=== PATIENT | female | born 1990 ===

== ENCOUNTER 2021-05-30 01:12 | Inpatient (IN) | payer SELFPAY ==
[2021-05-30] MEDS ORDERED: LACTATED RINGERS 1,000 ML IV ONE (02:04)
[2021-05-30 02:21] LABS: Bacteria,Urine 1+ /HPF (Negative); Bilirubin,Urine NEG (Negative); Blood,Urine LG (Negative); Color,Urine Yellow (Yellow); Mucus,Urine FEW /HPF; Protein,Urine <15 mg/dL mg/dL (Negative); Urobilinogen,Urine < 2.0 mg/dL (<2.0)
--- NOTE | 2021-05-30 03:56 | Ultrasound Report ---
ULTRASOUND BIOPHYSICAL PROFILE INDICATION: wellbeing. COMPARISON: None available. FINDINGS: breathing movement = 2 Gross body movement = 2 tone = 2 Qualitative amniotic fluid volume = 2 Total biophysical score = 8/8 Amniotic fluid index is 10.2 cm. Presentation is Cephalic. heart rate is 149 beats per minute. There is no sonographic evidence of placental abruption. The placenta is low lying and appears to cov er the cervical os. IMPRESSION: 1. biophysical profile = 8/8 2. ANNA is within normal limits. 3. Low lying placenta appears to cover the os, this is concerning for placenta previa. Signer Name: Landon Tamez MD Signed: 05/30/2021 3:51 AM Workstation Name: [id number]
[2021-05-30] MEDS ORDERED: ACETAMINOPHEN 325 MG TAB PO PRN (05:05)
[2021-05-30 05:09] LABS: Basophils % (Auto) 0.4 % (0.0-1.8); Eosinophils # (Auto) 0.1 K/mm3 (0.0-0.4); Eosinophils % (Auto) 0.7 % (0.0-4.3); Hematocrit 32.1 % (30.3-42.9); Hemoglobin 10.8 gm/dl (10.1-14.3); Lymphocytes # (Auto) 1.9 K/mm3 (1.2-5.4); Lymphocytes % (Auto) 20.3 % (13.4-35.0); Mean Corpuscular HGB Conc 34 % (30-34); Mean Corpuscular Volume 84 fl (79-97); Monocytes # (Auto) 0.5 K/mm3 (0.0-0.8); Monocytes % (Auto) 5.2 % (0.0-7.3); Platelet Count 280 K/mm3 (140-440); Red Blood Count 3.85 M/mm3 (3.65-5.03); Red Cell Distribution Width 12.5 % (13.2-15.2)
--- NOTE | 2021-05-30 05:28 | Ultrasound Report ---
OBSTETRIC ULTRASOUND INDICATION: EFW COMPARISON: Ultrasound earlier today. TECHNIQUE: Transabdominal imaging was performed. FINDINGS: Single viable intrauterine is identified. lie: Cephalic. Heart rate: 138 bpm. measurements are as follows: Biparietal diameter 7.2 cm, 28 weeks 5 days Head circumference 27.1 cm, 29 weeks 4 days Abdominal circumference 25.9 cm, 30 weeks 0 days Femur length 5.5 cm, 29 weeks 1 day CONCLUSION: Estimated weight at this time is 3 pounds, 2 ounces Signer Name: Landon Tamez MD Signed: 05/30/2021 5:23 AM Workstation Name: [id number]
[2021-05-30] MEDS: AMPICILLIN/NS 2 GM/100 ML 2 GM/100 ML BAG IV SCH ×3 (05:51→18:20)
[2021-05-30] MEDS: BETAMET ACET/BETAMET NA PH 6 MG/ML INJ 5 ML MDV IM SCH (05:55)
[2021-05-30] MEDS: LACTATED RINGERS 1,000 ML IV SCH ×2 (06:00→18:22)
[2021-05-30] MEDS: AZITHROMYCIN/NS 500 MG/250 ML 500 MG/250 ML BAG IV SCH (07:22)
--- NOTE | 2021-05-30 10:21 | History and Physical Report ---
History of Present Illness Date of examination: 05/30/21 Date of admission: 05/30/21 05:05 Chief complaint: vaginal bleeding History of present illness: 31 yo G1 at 32 weeks 4 days (SANTHOSH 07/21/2021) complicated by history of placenta previa presenting with second bleed during soaking patient's clothes and bedsheets that has since resolved. chart at 22 weeks on 03/13/2021 discussing with patient to not have intercourse or do heavy lifting however patient reports that she was not told this information. Reports active fetus. Reports having intercourse last 2 days ago. PNC O+ antibody negative Hemoglobin hematocrit 12.1 and 38.2 Plt 348 RPR NR 1hr GTT 127 Rubella immune Urine culture negative Pap ASCUS, HPV neg HIV negative VDRL nonreactive Chlamydia and gonorrhea negative AFP negative Past History Past Medical History: no pertinent history Past Surgical History: no surgical history Family/Genetic History: none Social history: no significant social history - Obstetrical History Expected Date of Delivery: 07/22/21 Actual Gestation: 32 Week(s) 3 Day(s) : 1 Medications and Allergies Allergies Allergy/AdvReac Type Severity Reaction Status Date / Time No Known Allergies Allergy Verified 05/30/21 02:08 Home Medications Medication Instructions Recorded Confirmed Last Taken Type Plus Iron Tablet PO DAILY 05/30/21 05/29/21 History Active Meds: Active Medications Acetaminophen (Acetaminophen 325 Mg Tab) 650 mg PO Q4H PRN PRN Reason: Pain MILD(1-3)/Fever >100.5/RIOJAS Betamethasone Acet/Betameth SodPhos (Betamet Acet/Betamet Na Ph 6 Mg/Ml Inj 5 Ml Mdv) 12 mg IM Q24H TILA Stop: 05/31/21 05:01 Last Admin: 05/30/21 05:55 Dose: 12 mg Documented by: Docusate Sodium (Docusate Sodium 100 Mg Cap) 100 mg PO Q12H PRN PRN Reason: Constipation Lactated Ringer's (Lactated Ringers) 1,000 mls @ 125 mls/hr IV DIRECT TILA Last Admin: 05/30/21 06:00 Dose: 125 mls/hr Documented by: Ampicillin Sodium (Ampicillin/Ns 2 Gm/100 Ml) 2 gm in 100 mls @ 100 mls/hr IV Q6H TILA; Protocol Stop: 06/01/21 00:59 Last Admin: 05/30/21 05:51 Dose: 100 mls/hr Documented by: Azithromycin (Zithromax/Ns) 500 mg in 250 mls @ 250 mls/hr IV Q24H [facility] Stop: 06/01/21 05:59 Last Admin: 05/30/21 07:22 Dose: 250 mls/hr Documented by: Multivitamins/Iron/Calcium ( Uit18-Hd Fumarate-Folic Acid Vit Tab) 1 each PO QDAY [facility] Review of Systems All systems: negative (expect HPI) - Vital Signs Vital signs: Vital Signs Pulse Pulse Ox 86 99 05/30/21 01:33 05/30/21 01:33 Temp Pulse Resp BP Pulse Ox 99.2 F 111 H 12 113/61 98 05/30/21 05:55 05/30/21 07:20 05/30/21 05:55 05/30/21 05:56 05/30/21 07:20 - Physical Exam Abdomen: Positive: normal appearance, soft Vagina: Positive: other (no further blood) Uterus: Positive: enlarged Extremities: Positive: normal - Obstetrical FHR: category 1 Uterine Contraction Monitor Mode: External Results Result Diagrams: 05/30/21 04:40 Abnormal lab results 05/30/21 05/30/21 Range/Units 04:20 04:40 RDW 12.5 L (13.2-15.2) % Seg Neutrophils % 73.4 H (40.0-70.0) % Membranes Rupture Positive A (Negative) All other labs normal. Assessment and Plan - Patient Problems (1) Vaginal bleeding during Current Visit: Yes Status: Acute Plan to address problem: Patient with no placenta previa presenting with vaginal bleeding in . Patient admits to intercourse last 2 days ago, non-compliant with recommendation to avoid intercourse. Vaginal bleeding since stopped. No evidence of abruption on the ultrasound completed today. ROM plus testing was completed today with a positive result however given known vaginal bleeding is possibly a contaminant leading to a false positive result. ANNA is normal. --Steroids for lung maturity --Amp/Azithro until rupture status determined --Consult [facility] for assistance --For primary c/s if labors --Counselled patient at length against intercourse with known placenta previa
[2021-05-30] MEDS: PRENATAL VIT27-FE FUMARATE-FOLIC ACID VIT TAB PO SCH (10:49)
--- NOTE | 2021-05-30 13:46 | Consultation ---
History of Present Illness Consult date: 05/30/21 Requesting physician: VIJAY WU JR History of present illness: 31 y/o G1P) SANTHOSH 07/21/21 OB reports known h/o placenta previa noted on prenatals on 20 week US ( Advised No Intercousre ) - now presenting with second episode of vaginal bleeding FOC in room reports having intercourse couple days ago Heavy Bleeding last pm around [place] No active bleeding during my exam and pad dry on inspection Denies Vag bleeding ctx fevers pain at this time OF NOTE [facility] US - 05/30/21 EFW at 1422 grams - 1% BPP / ANNA 10.2 VTX ( early US done at 11 weeks confirmed SANTHOSH of 07/21/21 ) Denies Surg Med ds, NKA, no C/D/D 05/30/21 H/H at 10.8/32.1 EFM occ ctx , Categ I ,120-130's Afeb VSS Abd NT gravid Ext NT Vag no active bleeding Pad dry PNC O+ antibody negative Hemoglobin hematocrit 12.1 and 38.2 Plt 348 RPR NR 1hr GTT 127 Rubella immune Urine culture negative Pap ASCUS, HPV neg HIV negative VDRL nonreactive Chlamydia and gonorrhea negative AFP negative Past History Past Medical History: no pertinent history Past Surgical History: no surgical history Family/Genetic History: none - Obstetrical History : 1 Medications and Allergies Allergies Allergy/AdvReac Type Severity Reaction Status Date / Time No Known Allergies Allergy Verified 05/30/21 02:08 Home Medications Medication Instructions Recorded Confirmed Last Taken Type Plus Iron Tablet PO DAILY 05/30/21 05/29/21 History Active Meds: Active Medications Acetaminophen (Acetaminophen 325 Mg Tab) 650 mg PO Q4H PRN PRN Reason: Pain MILD(1-3)/Fever >100.5/RIOJAS Betamethasone Acet/Betameth SodPhos (Betamet Acet/Betamet Na Ph 6 Mg/Ml Inj 5 Ml Mdv) 12 mg IM Q24H [facility] Stop: 05/31/21 05:01 Last Admin: 05/30/21 05:55 Dose: 12 mg Documented by: Docusate Sodium (Docusate Sodium 100 Mg Cap) 100 mg PO Q12H PRN PRN Reason: Constipation Lactated Ringer's (Lactated Ringers) 1,000 mls @ 125 mls/hr IV DIRECT TILA Last Admin: 05/30/21 06:00 Dose: 125 mls/hr Documented by: Ampicillin Sodium (Ampicillin/Ns 2 Gm/100 Ml) 2 gm in 100 mls @ 100 mls/hr IV Q6H [facility]; Protocol Stop: 06/01/21 00:59 Last Admin: 05/30/21 05:51 Dose: 100 mls/hr Documented by: Azithromycin (Zithromax/Ns) 500 mg in 250 mls @ 250 mls/hr IV Q24H [facility] Stop: 06/01/21 05:59 Last Admin: 05/30/21 07:22 Dose: 250 mls/hr Documented by: Multivitamins/Iron/Calcium ( Iku20-Ne Fumarate-Folic Acid Vit Tab) 1 each PO QDAY [facility] Last Admin: 05/30/21 10:49 Dose: 1 each Documented by: - Vital Signs Vital signs: Vital Signs Pulse Pulse Ox 86 99 05/30/21 01:33 05/30/21 01:33 Temp Pulse Resp BP Pulse Ox 99.2 F 111 H 12 113/61 100 05/30/21 05:55 05/30/21 07:20 05/30/21 05:55 05/30/21 05:56 05/30/21 11:03 Results Result Diagrams: 05/30/21 04:40 Abnormal lab results 05/30/21 05/30/21 Range/Units 04:20 04:40 RDW 12.5 L (13.2-15.2) % Seg Neutrophils % 73.4 H (40.0-70.0) % Membranes Rupture Positive A (Negative) All other labs normal. Assessment and Plan Impression 1. Kay IUP at 32 4/7 weeks 2. Severer FGR - EFW at 1% ( US done 05/30/21 ) 3. Placenta Previa Complete - Vag Bleeding 4. Anemia Recommendations: 1. Steroids for FLM if not given 2. Restrict activity and Pelvic Rest 3. Please Obtain Cord Arterial Dopplers with BPP ( Twice per week while in house - Tuesdays and Fridays ) 4. Iron BID 5. Declince Amnio at this time 6. Obtain NIPT if can be done in house 7. CMV IgG and IgM 8. C/S explained in the event delivery indicated due to previa 9. NICU consult if not done 10. speaks Angolan and explained management with him. 11. EFW US q 2 to 3 weeks
--- NOTE | 2021-05-30 16:15 | Ultrasound Report ---
ULTRASOUND OBSTETRIC LIMITED INDICATION / CLINICAL INFORMATION: severe iugr. Clinical Gestational Age (GA) in weeks, days: 32, 4 TECHNIQUE: Transabdominal. COMPARISON: None available. FINDINGS: HEART RATE (beats per minute): 116 UMBILICAL CORD DOPPLER: - S/D Ratio Average: 2.5 - Waveform: Normal. Persistent. - Resistive Index (RI) Average: 0.6 - Waveform: Normal. Persists - Pulsitivity Index (PI) Average: None measure ADDITIONAL FINDINGS: None. IMPRESSION: 1. No significant abnormality. Signer Name: Lloyd Hu DO Signed: 05/30/2021 4:11 PM Workstation Name: [id number]
--- NOTE | 2021-05-30 19:28 | Consultation ---
Consult Note - Parent Education I met with parent(s) and discussed the following:: Need for NICU admission, Poss ible need for intubation and surfactant or other resp support, Temperature regulation, Head ultrasounds to evaluate IVH, Eye exams for ROP screening, Possible need for IV fluids/TPN and IV antibiotics, Possible need for umbilical lines, Importance of providing breast milk & encouraged pumping aft delivery, Donor breast milk if baby meets criteria after , Slow feeding advancement and monitoring of tolerance. NG/OG feeds, Need to monitor for jaundice, Data for survival & survival without significant co-morbidities Parent(s) demonstrated understanding of all the information:: Yes Additional Comment: Consult done with assistance from Language line as mother is Fijian speaking only; FOB at bedside and speaks both Hong Konger and Fijian. Mothe r and Father verbalized understanding of information given and all questions answered. Assessment and Plan - Assessment Gestation:: 32.4 (IUGR with EFW at 1422g) Estimated Weight: 3lb 2oz ~ 1422g Baby's gender: Male (Sex of not listed in prenatals nor via US; comment on PNR on "circ undecided") - Plan Plan: Agree with Mag & steroids Will attend delivery Please call NICU with questions
[2021-05-31] MEDS: LACTATED RINGERS 1,000 ML IV SCH ×2 (01:27→12:11)
[2021-05-31] MEDS: AMPICILLIN/NS 2 GM/100 ML 2 GM/100 ML BAG IV SCH ×2 (01:27→07:14)
[2021-05-31] MEDS: BETAMET ACET/BETAMET NA PH 6 MG/ML INJ 5 ML MDV IM SCH (06:24)
[2021-05-31] MEDS: AZITHROMYCIN/NS 500 MG/250 ML 500 MG/250 ML BAG IV SCH (07:46)
--- NOTE | 2021-05-31 09:44 | Progress Note ---
Subjective - Subjective Date of service: 05/31/21 Principal diagnosis: Placenta Previa SANTHOSH 07/21/21 Interval history: 32.5 weeks today HD #2 Placenta Previa: no VB today Steroids completed 05/31/21 @ 06:24 no evidence of PPROM: d/c antibiotics(suspect ROM plus false pos because of bleeding) CFM FHT 120 baseline, Category 1: appropriate for gestational age [place]: not kristy Labs stable9 Hb 10.8) Plan for expectant management Deliver for any maternal or indication Pelvic rest Up to shower and chair today Dereck Zuniga MD Patient reports: movement normal Objective - Vital Signs Vital Signs: Vital Signs - 12hr 05/31/21 05/31/21 05/31/21 07:12 07:20 07:30 Temperature 98.0 F Pulse Rate 68 Respiratory 17 Rate Blood Pressure 103/58 O2 Sat by Pulse 97 Oximetry [ Bilateral Throughout] - Labs Labs: Abnormal Labs 05/30/21 05/30/21 04:20 04:40 RDW 12.5 L Seg Neutrophils % 73.4 H Membranes Rupture Positive A Laboratory Results - last 24 hr 05/30/21 Unknown Coronavirus (PCR) Negative
[2021-05-31] MEDS: DOCUSATE SODIUM 100 MG CAP PO PRN (10:23)
[2021-05-31] MEDS: PRENATAL VIT27-FE FUMARATE-FOLIC ACID VIT TAB PO SCH (10:23)
[2021-06-01] MEDS ORDERED: TERBUTALINE 1 MG/1 ML INJ SUB-Q ONE (02:29)
[2021-06-01] MEDS ORDERED: FAMOTIDINE 20 MG/2 ML INJ IV ONE (05:29)
[2021-06-01] MEDS ORDERED: BICITRA ORAL LIQD 30ML ONE (05:29)
[2021-06-01] MEDS ORDERED: OXYTOCIN DRIP 30,000 MILLIUNITS/500 ML BAG IV ONE (05:29)
[2021-06-01] MEDS ORDERED: METOCLOPRAMIDE 10 MG/2 ML INJ ONE (05:29)
[2021-06-01] MEDS ORDERED: SODIUM CHLORIDE 0.9% 500 ML 500 ML IV ONE (05:35)
--- NOTE | 2021-06-01 05:38 | Progress Note ---
Subjective - Subjective Date of service: 06/01/21 Principal diagnosis: Placenta Previa SANTHOSH 07/21/21 Interval history: 32.6 weeks NRFHT, placenta previa with bleeding(new onset this AM) and severe IUGR to OR for delivery Infromed consent Dereck Clark MD Patient reports: movement normal Objective - Vital Signs Vital Signs: Vital Signs - 12hr 05/31/21 05/31/21 05/31/21 18:45 18:49 18:51 Pulse Rate 63 62 O2 Sat by Pulse 77 L 76 L 80 L Oximetry 05/31/21 05/31/21 05/31/21 19:07 19:13 19:17 Pulse Rate 64 68 O2 Sat by Pulse 75 L 76 L 75 L Oximetry 05/31/21 05/31/21 05/31/21 19:18 19:29 19:34 Pulse Rate O2 Sat by Pulse 73 L 76 L 75 L Oximetry 05/31/21 05/31/21 05/31/21 19:37 19:50 19:55 Pulse Rate 62 66 O2 Sat by Pulse 75 L 75 L 75 L Oximetry 05/31/21 05/31/21 05/31/21 19:58 20:00 20:05 Pulse Rate 66 61 O2 Sat by Pulse 75 L 75 L 75 L Oximetry 05/31/21 05/31/21 05/31/21 20:12 20:17 20:31 Pulse Rate 60 81 65 O2 Sat by Pulse 76 L 75 L 77 L Oximetry 05/31/21 05/31/21 05/31/21 20:37 20:51 20:53 Pulse Rate 69 85 O2 Sat by Pulse 76 L 52 L 84 Oximetry 05/31/21 05/31/21 05/31/21 20:56 21:01 21:02 Pulse Rate 68 O2 Sat by Pulse 74 L 74 L 74 L Oximetry 05/31/21 05/31/21 05/31/21 21:12 21:18 21:23 Pulse Rate 81 61 O2 Sat by Pulse 77 L 75 L 71 L Oximetry 05/31/21 05/31/21 05/31/21 21:39 21:42 21:44 Pulse Rate 129 H 66 O2 Sat by Pulse 72 L 78 L 76 L Oximetry 05/31/21 05/31/21 05/31/21 22:01 22:03 22:06 Pulse Rate O2 Sat by Pulse 72 L 87 82 L Oximetry 05/31/21 05/31/21 05/31/21 22:08 22:23 22:28 Pulse Rate 57 L O2 Sat by Pulse 75 L 76 L 83 L Oximetry 05/31/21 05/31/21 05/31/21 22:29 22:33 22:42 Pulse Rate 104 H 102 H O2 Sat by Pulse 75 L 69 L 78 L Oximetry 05/31/21 05/31/21 05/31/21 22:47 22:52 22:53 Pulse Rate 64 64 O2 Sat by Pulse 79 L 75 L 73 L Oximetry 05/31/21 05/31/21 05/31/21 23:09 23:12 23:14 Pulse Rate 61 O2 Sat by Pulse 74 L 74 L 74 L Oximetry 05/31/21 05/31/21 05/31/21 23:17 23:20 23:32 Pulse Rate 59 L O2 Sat by Pulse 74 L 86 77 L Oximetry 05/31/21 05/31/21 05/31/21 23:36 23:37 23:42 Pulse Rate 74 O2 Sat by Pulse 59 L 74 L 74 L Oximetry 05/31/21 05/31/21 05/31/21 23:43 23:55 23:58 Pulse Rate 51 L 62 O2 Sat by Pulse 80 L 76 L 72 L Oximetry 06/01/21 06/01/21 06/01/21 00:00 00:04 00:06 Pulse Rate 130 H O2 Sat by Pulse 72 L 78 L 79 L Oximetry 06/01/21 06/01/21 06/01/21 00:15 00:21 00:30 Pulse Rate 101 H 183 H O2 Sat by Pulse 74 L 79 L 79 L Oximetry 06/01/21 06/01/21 06/01/21 00:35 00:36 00:41 Pulse Rate 88 59 L O2 Sat by Pulse 74 L 77 L 82 L Oximetry 06/01/21 06/01/21 06/01/21 00:46 00:51 00:56 Pulse Rate 55 L 54 L 53 L O2 Sat by Pulse 99 98 98 Oximetry 06/01/21 06/01/21 06/01/21 01:01 EST 01:02 EST 01:06 EST Pulse Rate 72 81 57 L O2 Sat by Pulse 98 92 99 Oximetry 06/01/21 06/01/21 06/01/21 01:07 EST 01:11 EST 01:12 EST Pulse Rate 63 52 L 60 O2 Sat by Pulse 99 97 99 Oximetry 06/01/21 06/01/21 06/01/21 01:16 EST 01:17 EST 01:21 EST Pulse Rate 56 L 58 L 59 L O2 Sat by Pulse 97 99 97 Oximetry 06/01/21 06/01/21 06/01/21 01:22 EST 01:26 EST 01:27 EST Pulse Rate 56 L 54 L 53 L O2 Sat by Pulse 98 97 98 Oximetry 06/01/21 06/01/21 06/01/21 01:31 EST 01:32 EST 01:36 EST Pulse Rate 57 L 55 L 59 L O2 Sat by Pulse 97 98 97 Oximetry 06/01/21 06/01/21 06/01/21 01:37 EST 01:41 EST 01:42 EST Pulse Rate 64 57 L 64 O2 Sat by Pulse 99 97 100 Oximetry 06/01/21 06/01/21 06/01/21 01:46 EST 01:47 EST 01:51 EST Pulse Rate 63 59 L 77 O2 Sat by Pulse 97 100 97 Oximetry 06/01/21 06/01/21 06/01/21 01:52 EST 01:56 EST 01:57 EST Pulse Rate 60 70 63 O2 Sat by Pulse 99 97 100 Oximetry 06/01/21 06/01/21 06/01/21 02:02 02:07 02:13 Pulse Rate 64 64 54 L O2 Sat by Pulse 99 100 82 L Oximetry 06/01/21 06/01/21 06/01/21 02:19 02:20 02:24 Pulse Rate 67 69 O2 Sat by Pulse 97 93 100 Oximetry 06/01/21 06/01/21 06/01/21 02:29 02:34 02:39 Pulse Rate 61 66 59 L O2 Sat by Pulse 100 100 99 Oximetry 06/01/21 06/01/21 06/01/21 02:44 02:49 02:54 Pulse Rate 61 69 66 O2 Sat by Pulse 98 100 100 Oximetry 06/01/21 06/01/21 06/01/21 02:59 03:04 03:09 Pulse Rate 72 72 77 O2 Sat by Pulse 99 99 98 Oximetry 06/01/21 06/01/21 06/01/21 03:14 03:19 03:24 Pulse Rate 107 H 109 H 105 H O2 Sat by Pulse 99 100 100 Oximetry 06/01/21 06/01/21 06/01/21 03:29 03:34 03:39 Pulse Rate 116 H 110 H 109 H O2 Sat by Pulse 100 99 99 Oximetry 06/01/21 06/01/21 06/01/21 03:44 03:49 03:54 Pulse Rate 108 H 93 H 92 H O2 Sat by Pulse 99 100 99 Oximetry 06/01/21 06/01/21 06/01/21 03:55 03:59 05:25 Pulse Rate 103 H 110 H 99 H O2 Sat by Pulse 93 100 100 Oximetry 06/01/21 06/01/21 05:30 05:35 Pulse Rate 119 H 125 H O2 Sat by Pulse 100 100 Oximetry - Labs Labs: Abnormal Labs 05/30/21 05/30/21 05/30/21 04:20 04:40 04:40 RDW 12.5 L Seg Neutrophils % 73.4 H Membranes Rupture Positive A Crossmatch See Detail Laboratory Results - last 24 hr 05/30/21 04:40 Crossmatch See Detail
[2021-06-01] MEDS ORDERED: ceFAZolin/STERILE WATER 2 GM/20 ML SYRINGE IV ONE (05:40)
[2021-06-01] MEDS ORDERED: SODIUM CHLORIDE 0.9% IRR 1,500 ML BOTTLE IR ONE (05:40)
[2021-06-01] MEDS ORDERED: WATER FOR IRRIG STERILE 1,500 ML BOTTLE IR ONE (05:40)
--- NOTE | 2021-06-01 05:40 | Procedure Note ---
OB Delivery Note - Delivery Date of Delivery: 06/01/21 Surgeon: SAW GAONA Estimated blood loss: other (729ml) - Section Preop diagnosis: nonreassuring FHR tracing, other (severe IUGR, placenta previa) Postop diagnosis: same section procedure: primary low transverse Disposition: PACU Complications: none Narrative: Preop diagnosis: IUP at 32.6 weeks, NRFHT, severe IUGR, placenta previa with new onset bleeding Postop diagnosis: Same Procedure: Primary low transverse section Surgeon: Dr. Saw Gaona Anesthesia spinal Complications none EBL 729 ml IV fluids 1000 mL Urine output 200mL, clear Drains Rodriguez to gravity Findings: Viable male with weight 1480gms and 8/9, normal uterus tubes and ovaries bilaterally Procedure: Patient was consented in room 2002, taken to the operating room where she received excellent spinal anesthesia. She was then placed in the dorsal supine position with a leftward tilt. The abdomen was prepped and draped in a sterile fashion, and a timeout was verified. Adequate anesthesia was confirmed prior to the skin incision. A Pfannenstiel skin incision was made with a scalpel taken down to the underlying structures and the fascia was incised in the midline. The incision was extended laterally with curved Hernandez scissors, the superior and inferior aspects of the fascial incisions were grasped with Lidia clamps and the rectus muscles dissected sharply. The abdomen was entered bluntly in the midline carried down inferiorly with good visualization of the bladder. The vesicouterine peritoneum was tented with Iranian forceps and incised in the midline with Metzenbaum scissors and the vesicouterine peritoneum taken down sharply. The uterine incision was then made sharply with a scalpel. The inferior and superior aspect of the uterine incisions were extended bluntly, the baby's head was delivered atraumatically. The remainder of the delivery was uncomplicated,loose nuchal cordx2 reduced after delivery. The cord was clamped and cut and baby handed to waiting NICU team. An intact placenta with three-vessel cord delivered manually. The uterus was then cleared of all clots and debris and the uterus exteriorized. The uterine incision was closed in 2 layers of 0 vicryl with excellent hemostasis. Methergine 0.2mg IM was given for prophylaxis against lower segment atony related to abnormal placentation. The abdomen was then irrigated with warm normal saline and the uterus placed back into the abdomen atraumatically. A second look at the uterine incision assured hemostasis. The peritoneum was closed with 3-0 Vicryl, the rectus muscles approximated with 3-0 Vicryl, and the fascia closed with 0 Vicryl in the usual fashion. The subcuticular structures were closed with interrupted sutures of 3-0 Vicryl and the skin closed with 4-0 Monocryl. A pressure dressing was applied. All sponge needle and instrument counts were correct x2. There were no complications. Mom and baby stable to PACU. EBL 729mL Dereck Gaona MD
[2021-06-01] MEDS ORDERED: METHYLERGONOVINE MALEATE 0.2 MG/ML VIAL IM ONE (05:44)
[2021-06-01] MEDS ORDERED: NalbUPHINE 10 MG/1 ML INJ IV PRN (06:15)
[2021-06-01] MEDS ORDERED: HYDROmorphone 1 MG/1 ML INJ IV PRN (06:15)
[2021-06-01] MEDS ORDERED: PROMETHAZINE 25 MG TAB PO PRN (06:15)
[2021-06-01] MEDS ORDERED: ONDANSETRON 4 MG/2 ML INJ IV PRN (06:15)
[2021-06-01] MEDS ORDERED: NALOXONE 0.4 MG/1 ML INJ IV PRN ×2 (06:15→06:49)
[2021-06-01] MEDS ORDERED: diphenhydrAMINE 50 MG/ML VIAL IV PRN (06:15)
[2021-06-01] MEDS ORDERED: PROMETHAZINE 25 MG RECT SUPP PR PRN (06:15)
--- NOTE | 2021-06-01 06:17 | Anesthesia Consultation ---
Anesthesia Consult and Med Hx Date of service: 06/01/21 - Airway Anesthetic Teeth Evaluation: Good ROM Head & Neck: Adequate Mental/Hyoid Distance: Adequate Mallampati Class: Class II Intubation Access Assessment: Probably Good - Pulmonary Exam CTA: Yes - Cardiac Exam Cardiac Exam: RRR - Pre-Operative Health Status ASA Pre-Surgery Classification: ASA2, Emergency Proposed Anesthetic Plan: Spinal Nerve Block: TAP - Pulmonary Hx Smoking: No Hx Sleep Apnea: No - Cardiovascular System Hx Hypertension: No Hx Heart Attack/AMI: No Hx Angina: No - Gastrointestinal Hx Gastroesophageal Reflux Disease: No - Endocrine Hx Renal Disease: No Hx Liver Disease: No Hx Insulin Dependent Diabetes: No Hx Non-Insulin Dependent Diabetes: No - Other Systems Hx Alcohol Use: No
--- NOTE | 2021-06-01 06:17 | Anesthesia Day of Surgery ---
Anesthesia Day of Surgery - Day of Surgery Patient Examined: Yes Patient H&P Reviewed: Yes Patient is NPO: Yes Beta Blockers: No Cardiac Clearance: No Pulmonary Clearance: No Kiko's Test: N/A
[2021-06-01] MEDS ORDERED: dexAMETHasone 20 MG/5 ML VIAL ONE (06:33)
[2021-06-01] MEDS ORDERED: ONDANSETRON 4 MG/2 ML INJ ONE (06:34)
[2021-06-01] MEDS ORDERED: MORPHINE 2 MG/1 ML INJ IV PRN (06:49)
[2021-06-01] MEDS ORDERED: WITCH HAZEL/ GLYCERIN PAD TP PRN (06:49)
[2021-06-01] MEDS ORDERED: MAGNESIUM HYDROXIDE (MOM) ORAL LIQD UDC PO PRN (06:49)
[2021-06-01] MEDS ORDERED: IBUPROFEN 600 MG TAB PO PRN (06:49)
[2021-06-01] MEDS ORDERED: KETOROLAC 30 MG/1 ML INJ IV PRN (06:49)
[2021-06-01] MEDS ORDERED: LANOLIN/ZINC/DIMETHICONE (LANSINOH) 7 GM TP PRN (06:49)
[2021-06-01] MEDS ORDERED: MORPHINE 4 MG/1 ML INJ IV PRN (06:49)
[2021-06-01] MEDS ORDERED: SIMETHICONE 80 MG CHEW TAB PO PRN (06:49)
[2021-06-01] MEDS ORDERED: BUPIVACAINE/PF (0.25%) 2.5 MG/ML 30 ML VIAL INFILTRATI ONE (06:51)
[2021-06-01] MEDS ORDERED: OXYTOCIN DRIP 30 UNITS/500 ML BAG IV SCH (07:00)
[2021-06-01] MEDS: LACTATED RINGERS 1,000 ML IV SCH (09:59)
[2021-06-01] MEDS: PRENATAL VIT27-FE FUMARATE-FOLIC ACID VIT TAB PO SCH (09:59)
[2021-06-01] MEDS: FERROUS SULFATE 325 MG TAB PO SCH (10:00)
--- NOTE | 2021-06-01 12:51 | Post Anesthesia Evaluation ---
- Post Anesthesia Evaluation Patient Participated: Yes Airway Patent: Yes Stable Respiratory Function: Yes Nausea/Vomiting: No Temp > 96.8F: Yes Pain Manageable: Yes Adequeate Hydration: Yes Anesthesia Complications: No Block Receding Appropriately: Yes Patient on Ventilator: No
[2021-06-01 15:35] LABS: Hematocrit 29.6 % (30.3-42.9); Hemoglobin 9.9 gm/dl (10.1-14.3); Mean Corpuscular HGB Conc 34 % (30-34); Mean Corpuscular Volume 84 fl (79-97); Platelet Count 289 K/mm3 (140-440); Red Blood Count 3.53 M/mm3 (3.65-5.03); Red Cell Distribution Width 12.3 % (13.2-15.2)
[2021-06-01] MEDS: KETOROLAC 30 MG/1 ML INJ IV PRN ×2 (15:39→23:00)
[2021-06-01 23:18] LABS: Hematocrit 28.7 % (30.3-42.9); Hemoglobin 9.6 gm/dl (10.1-14.3)
[2021-06-02] MEDS: FERROUS SULFATE 325 MG TAB PO SCH (09:09)
[2021-06-02] MEDS: HYDROcodone/ACETAMINOPHEN 5-325 MG TAB PO PRN ×2 (09:10→20:00)
[2021-06-02] MEDS: PRENATAL VIT27-FE FUMARATE-FOLIC ACID VIT TAB PO SCH (09:10)
--- NOTE | 2021-06-02 12:36 | Progress Note ---
Assessment and Plan A: POD #1 Asymptomatic Anemia P: Follow Routine PostOp Orders Continue FeSO4 as ordered Subjective - Subjective Date of service: 06/02/21 Principal diagnosis: Placenta Previa SANTHOSH 07/21/21 Patient reports: appetite normal, voiding normally, pain well controlled, flatus, ambulating normally : in NICU Objective - Vital Signs Latest vital signs: Vital Signs Temp Pulse Resp BP BP Pulse Ox 06/02/21 08:00 96 06/02/21 07:56 98.1 F 95/55 06/02/21 00:00 98.8 F 69 18 114/72 06/01/21 23:30 18 06/01/21 23:00 18 06/01/21 20:00 96 06/01/21 15:50 98.2 F 58 L 20 102/52 06/01/21 15:39 16 06/01/21 13:15 98.2 F 85 20 110/54 Intake and Output 06/01/21 06/02/21 06/02/21 22:59 06:59 14:59 Intake Total 960 300 Output Total 900 Balance 60 300 Intake: Oral 660 Intake, Free Water 300 300 Output: Urine 900 Indwelling Catheter 900 Other: Total, Intake Amount 420 Total, Output Amount 900 # Voids Void 0 1 - Exam Breasts: Present: normal Cardiovascular: Present: Regular rate Lungs: Present: Clear to auscultation, Normal air movement Abdomen: Present: normal appearance, soft, normal bowel sounds Uterus: Present: normal, firm, fundal height below umbilicus Extremities: Present: normal Incision: Present: dry, dressed - Labs Labs: Abnormal lab results 06/01/21 06/01/21 Range/Units 15:17 23:02 WBC 14.0 H (4.5-11.0) K/mm3 RBC 3.53 L (3.65-5.03) M/mm3 Hgb 9.9 L 9.6 L (10.1-14.3) gm/dl Hct 29.6 L 28.7 L (30.3-42.9) % RDW 12.3 L (13.2-15.2) %
[2021-06-02] MEDS: IBUPROFEN 800 MG TAB PO PRN (13:06)
[2021-06-03] MEDS: HYDROcodone/ACETAMINOPHEN 5-325 MG TAB PO PRN (02:00)
[2021-06-03] MEDS: IBUPROFEN 800 MG TAB PO PRN ×2 (10:09→17:43)
[2021-06-03] MEDS: DOCUSATE SODIUM 100 MG CAP PO PRN (10:09)
[2021-06-03] MEDS: FERROUS SULFATE 325 MG TAB PO SCH (10:09)
[2021-06-03] MEDS: PRENATAL VIT27-FE FUMARATE-FOLIC ACID VIT TAB PO SCH (10:09)
--- NOTE | 2021-06-03 11:30 | Progress Note ---
Assessment and Plan A: S/P Primary LTCS Secondary to previa Asymptomatic anemia Hasn't passed gas yet P: Continue routine pp orders Continue Fe as prescribed Encourage ambulation D/C within 24-48 hrs if stable Subjective - Subjective Date of service: 06/03/21 Principal diagnosis: Placenta Previa SANTHOSH 07/21/21 Patient reports: appetite normal, voiding normally, pain well controlled, ambulating normally, other (no gas yet) [place]: doing well, bottle feeding Objective - Vital Signs Latest vital signs: Vital Signs Temp Pulse Resp BP Pulse Ox Pulse Ox 06/03/21 08:30 99 06/03/21 07:59 98.4 F 71 18 119/65 99 06/03/21 03:00 18 06/03/21 02:00 18 06/03/21 00:52 98.1 F 57 L 20 105/64 100 06/02/21 21:00 18 06/02/21 20:00 18 98 06/02/21 16:01 97.7 F 60 20 108/53 100 Intake and Output 06/02/21 06/03/21 06/03/21 22:59 06:59 14:59 Intake Total 680 Balance 680 Intake: Oral 320 Intake, Free Water 360 Other: Total, Intake Amount 320 # Voids Void 1 1 - Exam Breasts: Present: normal Abdomen: Present: normal appearance, soft, normal bowel sounds Vulva: both: normal Uterus: Present: normal, firm, fundal height below umbilicus Extremities: Present: normal Incision: Present: normal, dry, intact
[2021-06-04] MEDS: IBUPROFEN 800 MG TAB PO PRN ×2 (05:56)
[2021-06-04] MEDS: FERROUS SULFATE 325 MG TAB PO SCH (09:45)
[2021-06-04] MEDS: HYDROcodone/ACETAMINOPHEN 5-325 MG TAB PO PRN (09:45)
[2021-06-04] MEDS: PRENATAL VIT27-FE FUMARATE-FOLIC ACID VIT TAB PO SCH (09:45)
--- NOTE | 2021-06-04 15:34 | Progress Note ---
Assessment and Plan A: POD #3 Asymptomatic Anemia P: Follow Routine P Orders Continue FeSO4 as ordered D/C home today RTO in 1 Week Subjective - Subjective Date of service: 06/04/21 Principal diagnosis: Placenta Previa SANTHOSH 07/21/21 Patient reports: appetite normal, voiding normally, pain well controlled, flatus, bowel movement, ambulating normally : in NICU, bottle feeding (and ) Objective - Vital Signs Latest vital signs: Vital Signs Temp Pulse Resp BP BP Pulse Ox Pulse Ox 06/04/21 08:00 98 06/04/21 07:45 98.1 F 78 20 105/67 99 06/04/21 06:56 18 06/04/21 05:56 18 06/04/21 01:00 18 06/04/21 00:00 98.6 F 77 18 104/70 06/03/21 20:00 98 06/03/21 16:55 98.6 F 64 18 112/63 98 Intake and Output 06/04/21 06/04/21 06/04/21 06:59 14:59 22:59 Intake Total 300 Balance 300 Intake: Intake, Free Water 300 Other: # Voids Void 1 - Exam Breasts: Present: normal Cardiovascular: Present: Regular rate Lungs: Present: Clear to auscultation, Normal air movement Abdomen: Present: normal appearance, soft, normal bowel sounds Uterus: Present: normal, firm, fundal height below umbilicus Extremities: Present: normal Incision: Present: normal, dry, intact - Labs Labs: Abnormal lab results 05/30/21 Range/Units 21:00 CMV IgG Ab >10.00 H (<0.60) U/mL
--- NOTE | 2021-06-04 15:36 | Discharge Summary ---
Providers - Providers Date of Admission: 05/30/21 05:05 Date of discharge: 06/04/21 Attending physician: JUNIE TORRES 05/30/21 16:26 Consult to Physician [CONS] Routine Comment: Consulting Provider: VANDANA CASTANO Physician Instructions: Reason For Exam: IUGR at 1%, vaginal bleeding with previa at 32wk Primary care physician: JUNIE TORRES Hospitalization Reason for admission: vaginal bleeding Delivery: Procedure: primary low transverse Episiotomy: none Laceration: none Incision: normal, dry, intact Other procedures: none complications: none Discharge diagnosis: delivery Condition at discharge: Good Disposition: 30 STILL A PATIENT Plan - Discharge Medications Prescriptions: Ibuprofen [Motrin] 600 mg PO Q8H PRN #60 tablet PRN Reason: Pain oxyCODONE /ACETAMINOPHEN [Percocet 5/325] 1 tab PO Q6HR PRN #20 tablet PRN Reason: Pain - Provider Discharge Summary Activity: routine, no sex for 6 weeks, no heavy lifting 4 weeks, no strenuous exercise Diet: routine Instructions: routine Additional instructions: [] Smoking cessation referral if applicable(refer to patient education folder for contact #) [] Refer to [employer] Booklet Call your doctor immediately for: * Fever > 100.5 * Heavy vaginal bleeding ( >1 pad per hour) * Severe persistent headache * Shortness of breath * Reddened, hot, painful area to leg or breast * Drainage or odor from incision. * Keep incision clean and dry at all times and follow doctor's instructions regarding bathing/showering - Follow up plan Follow up: JUNIE TORRES MD [Primary Care Provider] - 7 Days Forms: [facility] Discharge Summary
[2021-06-04 17:15] VITALS: BP 112/87
== END 2021-06-04 16:35 | disposition home or self-care (01) | DRG 786 ==
LOC: TRG 01:12 → APU 01:22 → LD 05:05 → TRG 05:05 → OB 06-01 08:36
PROVIDERS: ADMIT Obstetrics & Gynecology; ATTEND Obstetrics & Gynecology
PROC: 10D00Z1 Extraction of Products of Conception, Low, Open Approach (ICD-10-PCS; principal; 2021-06-01)
DX: O76 Abnormality in fetal heart rate and rhythm complicating labor and delivery (principal); O44.13 Complete placenta previa with hemorrhage, third trimester; O60.14X0 Preterm labor third trimester with preterm delivery third trimester, not applicable or unspecified; O36.5930 Maternal care for other known or suspected poor fetal growth, third trimester, not applicable or unspecified; Z37.0 Single live birth; O99.02 Anemia complicating childbirth; D64.9 Anemia, unspecified; Z20.822 Contact with and (suspected) exposure to COVID-19; Z3A.32 32 weeks gestation of pregnancy; Z91.19 Patient's noncompliance with other medical treatment and regimen
CPT/HCPCS: 36415; 59025; 76815; 76819; 76820; 81001; 84112; 85014; 85018; 85025; 85027; 86592; 86644; 86645; 86850; 86900; 86901; 86920; 87086; 88307; 96360; 99211; G0378; G0463; J0290; J0456; J0690; J0702; J1100; J1885; J2270; J2405; J3105; J3490; J7120; U0003